=== PATIENT | female | born 1965 | race Caucasian/White ===

== ENCOUNTER 2017-10-07 17:07 | Observation (INO) | payer BC ==
--- NOTE | 2017-10-07 19:06 | RAD ---
INDICATION: Chest pain COMPARISON: None TECHNIQUE: An AP portable view obtained at 1836 hours is submitted. FINDINGS: Bones/Soft Tissues: There are no acute bony findings. Cardiomediastinal: The cardiomediastinal silhouette is normal. Lungs: There are no infiltrates. Pleura: There are no pleural effusions. Other: None IMPRESSION: NO ACTIVE DISEASE.
[2017-10-07 19:07] LABS: Hematocrit 43 % (35-47); Hemoglobin 14.8 g/dl (12.0-16.0); Mean Corpuscular HGB Conc 34 g/dl (31-36); Mean Corpuscular Hemoglobin 31 pg (27-31); Mean Corpuscular Volume 89 fL (80-97); Mean Platelet Volume 8 um3 (7.4-10.4); Red Blood Count 4.83 10^6/ul (4.0-5.4); Red Cell Distribution Width 13 % (10.5-15); White Blood Count 9.1 10^3/ul (3.5-10.8)
[2017-10-07 19:19] LABS: ALT 11 U/L (7-52); AST 11 U/L (13-39); Albumin 4.7 g/dL (3.2-5.2); Alkaline Phosphatase 25 U/L (34-104); Anion Gap 9 mmol/L (2-11); BUN/Creatinine Ratio 14.1 (8-20); Blood Urea Nitrogen 9 mg/dL (6-24); CO2 Carbon Dioxide 23 mmol/L (22-32); Calcium 9.6 mg/dL (8.6-10.3); Chloride 106 mmol/L (101-111); Creatine Kinase 32 U/L (10-223); EGFR African American 125.8 (>60); EGFR Non-African American 97.8 (>60); Globulin 2.8 g/dL (2-4); Glucose 92 mg/dL (70-100); Magnesium 2.4 mg/dL (1.9-2.7); Potassium 3.8 mmol/L (3.5-5.0); Sodium 138 mmol/L (133-145); Total Protein 7.5 g/dL (6.4-8.9)
[2017-10-07 19:53] LABS: T4 8.58 mcg/mL (6.09-12.23)
[2017-10-07 19:57] LABS: TSH (Thyroid Stimulating Horm) 0.49 mcIU/mL (0.34-5.60)
[2017-10-07] MEDS ORDERED: Iohexol 350* (CONTRAST) 500 ML MDV IV ONE (19:57)
[2017-10-07] MEDS ORDERED: NS 0.9% 1000 ML* 1,000 ML IV SCH (20:00)
--- NOTE | 2017-10-07 20:22 | RAD ---
INDICATION: Chest pain. Evaluate for dissection COMPARISON: CTA chest October 18, 2016 TECHNIQUE: Axial source images were obtained from the thoracic inlet to the symphysis pubis following administration of intravenous contrast with CT angiographic technique. Exit cc of Omnipaque 350 was utilized. Coronal and sagittal reconstructed images were acquired. 3-D volume rendered images of the aorta were obtained CHEST FINDINGS: Neck/thyroid: The visualized neck to include the thyroid appears unchanged with enlargement and heterogeneity of the left thyroid lobe. This is been described previously. Chest wall: There are no acute abnormalities of the bony thorax or chest wall. There is no supraclavicular, infraclavicular, or axillary lymphadenopathy. Lungs : There are no pulmonary parenchymal masses or infiltrates. The pulmonary interstitium appears normal. There are no endobronchial lesions. Cardiomediastinal structures: The heart is normal in size. There is no pericardial effusion. There is no evidence of aortic aneurysm or dissection. The pulmonary vessels appear normal. There is no mediastinal or hilar adenopathy. The esophagus appears normal. Pleura : There are no pleural-based masses or effusions. ABDOMINAL/PELVIC FINDINGS: Liver: The liver is normal in size. There are no masses. There is no ductal dilatation. Gallbladder: There are no calcified gallstones. There is no evidence of wall thickening or pericholecystic fluid. Spleen: The spleen is normal in size. There are no masses. Pancreas: There is no evidence of pancreatic mass or ductal dilatation. Adrenal glands: There is no evidence of adrenal mass. Kidneys: The kidneys are normal in size and position. There are prompt nephrograms and there is prompt excretion bilaterally. There are no renal parenchymal masses. There is no evidence of nephrolithiasis. Adenopathy: There is no evidence of adenopathy by size criteria. Fluid collections: There are no free or localized fluid collections. Vessels:The aorta and IVC appear normal. The visceral branches arise satisfactorily. The iliac vessels are normal in caliber. There is no evidence of abdominal aortic or iliac artery aneurysm or dissection GI tract: There are no acute CT bowel findings. There is no obstruction. The stomach and small bowel appear normal. The lower GI tract is normal. The cecum, ileocecal valve, and terminal ileum appear normal. The appendix is visualized and appear normal. Pelvic organs: The uterus and adnexa appear normal Bladder: There are no bladder masses. Abdominal and pelvic soft tissues: The extraperitoneal abdominal and pelvic soft tissues appear normal.. Osseous structures: There are no acute osseous findings. IMPRESSION: NO CT ANGIOGRAPHIC ABNORMALITIES. LUNGS CLEAR.
[2017-10-07 21:40] LABS: Urine Bilirubin Negative (Negative); Urine Glucose Negative (Negative); Urine Nitrite Negative (Negative)
[2017-10-07] MEDS ORDERED: Aspirin TAB* 325 MG PO ONE (21:42)
[2017-10-07] MEDS ORDERED: Nitroglycerin 2% OINT* 1 GM PAK TOPICAL ONE (21:42)
[2017-10-07] MEDS ORDERED: Ondansetron INJ* 2 MG/ML VIAL IV PRN (22:31)
[2017-10-07] MEDS ORDERED: Al Hydrox/Mg Hydrox/Simet LIQ* 30 ML UDC PO PRN (22:31)
[2017-10-07 23:03] LABS: Cholesterol 232 mg/dL; HDL Cholesterol 46.7 mg/dL; LDL Cholesterol 173 mg/dL; Triglycerides 63 mg/dL
--- NOTE | 2017-10-07 23:55 | ED ---
Mk Perez Gabriel, scribed for Pilo Armendariz on 10/07/17 at 1934 . HPI Chest Pain - HPI Summary HPI Summary: This patient is a 52 year old F presenting to [facility] accompanied by with a chief complaint of CP since 3 days ago. The patient rates the pain 5/10 in severity and describes it as pressure and heaviness on her chest. Symptoms alleviated by walking. Patient reports slight SOB and back pain (mid back). Patient denies edema and ABD pain. - History of Current Complaint Chief Complaint: EDChestPainROMI Time Seen by Provider: 10/07/17 19:19 Hx Obtained From: Patient Onset/Duration: Started Days Ago - 3, Still Present Timing: Constant Pain Intensity: 5 Pain Scale Used: 0-10 Numeric Chest Pain Radiates: Yes Chest Pain Radiates To:: Back Character: Other: - pressure and heaviness Alleviating Factor(s): Other: - walking Associated Signs and Symptoms: Positive: Other: - sob and back pain. Negative: Abdominal Pain, Edema - Allergy/Home Medications Allergies/Adverse Reactions: Allergies Allergy/AdvReac Type Severity Reaction Status Date / Time No Known Allergies Allergy Verified 10/07/17 17:38 Home Medications: Home Medications Acetaminophen TAB* [Tylenol TAB*] 650 mg PO DAILY PRN 10/07/17 [History Confirmed 10/07/17] Fluticasone NASAL SPRAY 50MCG* [Flonase NASAL SPRAY 50MCG*] 1 btl NASAL Q6HR [History Confirmed 10/07/17] PMH/Surg Hx/FS Hx/Imm Hx Previously Healthy: No Endocrine/Hematology History: Denies: Hx Diabetes Cardiovascular History: Denies: Hx Hypertension GI History: Reports: Hx Gastroesophageal Reflux Disease History: Denies: Hx Renal Disease - Surgical History Surgery Procedure, Year, and Place: Tubal ligation - Immunization History Date of Tetanus Vaccine: unknown Date of Influenza Vaccine: unknown Infectious Disease History: No Infectious Disease History: Denies: Traveled Outside the [place] in Last 30 Days - Family History Known Family History: Positive: Cardiac Disease, Other - high cholesterol Negative: Hypertension, Diabetes - Social History Alcohol Use: None Hx Substance Use: No Substance Use Type: Reports: None Hx Tobacco Use: No Smoking Status (MU): Never Smoked Tobacco Review of Systems Positive: Chest Pain Positive: Shortness Of Breath Negative: Abdominal Pain Positive: Other - back pain . Negative: Edema All Other Systems Reviewed And Are Negative: Yes Physical Exam - Summary Physical Exam Summary: Appearance: Well appearing, no pain distress Skin: warm, dry, reflects adequate perfusion Head/face: normal Eyes: EOMI, MARLINE ENT: normal Neck: supple, non-tender Respiratory: CTA, breath sounds present Cardiovascular: pulses symmetrical, tachycardia Abdomen: non-tender, soft Bowel: present Musculoskeletal: normal, strength/ROM intact Neuro: normal, sensory motor intact, A&Ox3 Triage Information Reviewed: Yes Vital Signs On Initial Exam: Initial Vitals Temp Pulse Resp BP Pulse Ox 99.5 F 130 20 144/109 100 10/07/17 17:12 10/07/17 17:12 10/07/17 17:12 10/07/17 17:12 10/07/17 17:12 Vital Signs Reviewed: Yes - [place] Coma Scale Coma Scale Total: 15 Diagnostics - Vital Signs Vital Signs Temp Pulse Resp BP Pulse Ox 10/07/17 18:30 121 16 170/101 97 10/07/17 18:00 115 15 172/103 98 10/07/17 17:30 127 20 173/90 99 10/07/17 17:27 132 21 99 10/07/17 17:24 152/120 10/07/17 17:12 99.5 F 130 20 144/109 100 - Laboratory Lab Results: Lab Results 10/07/17 10/07/17 10/07/17 Range/Units 18:52 18:52 18:52 WBC 9.1 (3.5-10.8) 10^3/ul RBC 4.83 (4.0-5.4) 10^6/ul Hgb 14.8 (12.0-16.0) g/dl Hct 43 (35-47) % MCV 89 (80-97) fL MCH 31 (27-31) pg MCHC 34 (31-36) g/dl RDW 13 (10.5-15) % Plt Count 360 (150-450) 10^3/ul MPV 8 (7.4-10.4) um3 Neut % (Auto) 77.1 (38-83) % Lymph % (Auto) 16.8 L (25-47) % Sau[place] % (Auto) 5.3 (1-9) % Eos % (Auto) 0.1 (0-6) % Baso % (Auto) 0.7 (0-2) % Absolute Neuts (auto) 7.0 (1.5-7.7) 10^3/ul Absolute Lymphs (auto) 1.5 (1.0-4.8) 10^3/ul Absolute Monos (auto) 0.5 (0-0.8) 10^3/ul Absolute Eos (auto) 0 (0-0.6) 10^3/ul Absolute Basos (auto) 0.1 (0-0.2) 10^3/ul Absolute Nucleated RBC 0 10^3/ul Nucleated RBC % 0 INR (Anticoag Therapy) 0.97 (0.89-1.11) APTT 33.5 (26.0-36.3) seconds D-Dimer, Quantitative < 200 (Less Than 230) ng/mL Sodium (133-145) mmol/L Potassium (3.5-5.0) mmol/L Chloride (101-111) mmol/L Carbon Dioxide (22-32) mmol/L Anion Gap (2-11) mmol/L BUN (6-24) mg/dL Creatinine (0.51-0.95) mg/dL Est GFR ( Amer) (>60) Est GFR (Non-Af Amer) (>60) BUN/Creatinine Ratio (8-20) Glucose (70-100) mg/dL Lactic Acid (0.5-2.0) mmol/L Calcium (8.6-10.3) mg/dL Magnesium (1.9-2.7) mg/dL Total Bilirubin (0.2-1.0) mg/dL AST (13-39) U/L ALT (7-52) U/L Alkaline Phosphatase (34-104) U/L Total Creatine Kinase (10-223) U/L CK-MB (CK-2) (0.6-6.3) ng/mL Myoglobin (14.3-65.8) ng/mL Troponin I (<0.04) ng/mL B-Natriuretic Peptide 14 ( - 100) pg/mL Total Protein (6.4-8.9) g/dL Albumin (3.2-5.2) g/dL Globulin (2-4) g/dL Albumin/Globulin Ratio (1-3) TSH Thyroxine (T4) 10/07/17 10/07/17 Range/Units 18:52 18:52 WBC (3.5-10.8) 10^3/ul RBC (4.0-5.4) 10^6/ul Hgb (12.0-16.0) g/dl Hct (35-47) % MCV (80-97) fL MCH (27-31) pg MCHC (31-36) g/dl RDW (10.5-15) % Plt Count (150-450) 10^3/ul MPV (7.4-10.4) um3 Neut % (Auto) (38-83) % Lymph % (Auto) (25-47) % Sau[place] % (Auto) (1-9) % Eos % (Auto) (0-6) % Baso % (Auto) (0-2) % Absolute Neuts (auto) (1.5-7.7) 10^3/ul Absolute Lymphs (auto) (1.0-4.8) 10^3/ul Absolute Monos (auto) (0-0.8) 10^3/ul Absolute Eos (auto) (0-0.6) 10^3/ul Absolute Basos (auto) (0-0.2) 10^3/ul Absolute Nucleated RBC 10^3/ul Nucleated RBC % INR (Anticoag Therapy) (0.89-1.11) APTT (26.0-36.3) seconds D-Dimer, Quantitative (Less Than 230) ng/mL Sodium 138 (133-145) mmol/L Potassium 3.8 (3.5-5.0) mmol/L Chloride 106 (101-111) mmol/L Carbon Dioxide 23 (22-32) mmol/L Anion Gap 9 (2-11) mmol/L BUN 9 (6-24) mg/dL Creatinine 0.64 (0.51-0.95) mg/dL Est GFR ( Amer) 125.8 (>60) Est GFR (Non-Af Amer) 97.8 (>60) BUN/Creatinine Ratio 14.1 (8-20) Glucose 92 (70-100) mg/dL Lactic Acid 0.8 (0.5-2.0) mmol/L Calcium 9.6 (8.6-10.3) mg/dL Magnesium 2.4 (1.9-2.7) mg/dL Total Bilirubin 0.70 (0.2-1.0) mg/dL AST 11 L (13-39) U/L ALT 11 (7-52) U/L Alkaline Phosphatase 25 L (34-104) U/L Total Creatine Kinase 32 (10-223) U/L CK-MB (CK-2) 1.2 (0.6-6.3) ng/mL Myoglobin 18.9 (14.3-65.8) ng/mL Troponin I 0.00 (<0.04) ng/mL B-Natriuretic Peptide ( - 100) pg/mL Total Protein 7.5 (6.4-8.9) g/dL Albumin 4.7 (3.2-5.2) g/dL Globulin 2.8 (2-4) g/dL Albumin/Globulin Ratio 1.7 (1-3) TSH Pending Thyroxine (T4) Pending Result Diagrams: 10/07/17 18:52 10/07/17 18:52 Lab Statement: Any lab studies that have been ordered have been reviewed, and results considered in the medical decision making process. - Radiology CXR Radiology Interpretation Completed By: Radiologist - , NO ACTIVE DISEASE. ED physician has reviewed this radiology report and agrees. - CT CT ABD/Pelvis/Chest CT Interpretation Completed By: Radiologist - EKG 17:48 Cardiac Rate: Tachycardia EKG Rhythm: Sinus Tachycardia - 110 BPM EKG Interpretation: No acute changes Re-Evaluation - Re-Evaluation First Eval Re-Evaluation Time: 21:35 Change: Unchanged - Patient still reports chest pain Chest Pain Course/Dx - Course Assessment/Plan: This patient is a 52 year old F presenting to [facility] accompanied by with a chief complaint of CP that radiates into her back since 3 days ago. An EKG reveals sinus tachycardia at [address] Chest/ABD/ Pelvis reveals, per radiologist, NO CT ANGIOGRAPHIC ABNORMALITIES. LUNGS CLEAR. CXR reveals, per radiologist, NO ACTIVE DISEASE. Blood work and urinalysis were taken with no significant abnormalities. In the ED course the patient was given NTG, ASA (325), IV fluids, and Iohexol. pt still have chest pains and will admit. The patient is agreeable with this plan - Chest Pain Differential Diagnosis/HQI/PQRI: Acute TX, ACS, CHF, Chest Wall, Pulmonary Embolism, Other: - dissection aorta - Diagnoses Provider Diagnoses: Ruled out for myocardial infarction, Chest pain - Provider Notifications Discussed Care Of Patient With: Yudelka Bryant Time Discussed With Above Provider: 21:40 Instructed by Provider To: Other - We discussed patient care with Dr. Bryant, hospitalist and they agreed to admit the patient. Discharge - Discharge Plan Condition: Stable Disposition: ADMITTED TO [facility] documentation as recorded by the Mk hankins Gabriel accurately reflects the service I personally performed and the decisions made by Marcello nova Emmanuel.
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
[2017-10-08] MEDS: Heparin VIAL(*) 5000 UNITS/ML VIAL (FIVE THOUSAND) SUBCUT SCH ×2 (05:56→15:31)
[2017-10-08] MEDS ORDERED: Fluticasone NASAL SPRAY 50MCG* 16 gm SPRAY BTL BOTH NARES SCH (09:00)
[2017-10-08] MEDS ORDERED: Aspirin EC Low Dose* 81 MG TAB.EC PO SCH (09:00)
--- NOTE | 2017-10-08 15:23 | PN ---
Subjective Date of Service: 10/08/17 Interval History: Patient seen and examined at bedside. Denies fever, chills, shortness of breath , chest discomfort, N/V/D. Pt reports recently carrying heavy groceries and feels this could have contributed to her discomfort. Pt also reports recently switching from decaf to regular coffee and has had palpitations with regular coffee in the past. Tele: Sinus rhythm, rate 70-80's, few PVCs noted Family History: Unchanged from Admission Social History: Unchanged from Admission Past Medical History: Unchanged from Admission Objective Active Medications: Al Hydrox/Mg Hydrox/Simethicone (Maalox Plus*) 30 ml PO Q6H PRN Reason: INDIGESTION Aspirin (Aspirin Ec Low Dose*) 81 mg PO DAILY DERREK Fluticasone Propionate (Flonase Nasal [place] 50mcg*) 2 spray BOTH NARES DAILY DERREK Heparin Sodium (Porcine) (Heparin Vial(*)) 5,000 units SUBCUT Q8HR DERREK Ondansetron HCl (Zofran Inj*) 4 mg IV Q4H PRN Reason: NAUSEA/VOMITING Vital Signs 10/07/17 10/07/17 10/08/17 23:00 23:46 00:00 Temperature Pulse Rate 91 88 85 Respiratory 18 17 15 Rate Blood Pressure 139/90 134/85 (mmHg) O2 Sat by Pulse 97 96 96 Oximetry 10/08/17 10/08/17 10/08/17 00:01 00:10 03:31 Temperature 98.7 F 98.0 F 98.2 F Pulse Rate 84 78 Respiratory 18 20 Rate Blood Pressure 142/74 138/79 (mmHg) O2 Sat by Pulse 99 98 Oximetry Oxygen Devices in Use Now: None Appearance: NAD, laying in bed Respiratory: Symmetrical Chest Expansion and Respiratory Effort, Clear to Auscultation Cardiovascular: NL Sounds; No Murmurs; No JVD, RRR Abdominal: NL Sounds; No Tenderness; No Distention Extremities: No Edema Skin: No Rash or Ulcers Neurological: Alert and Oriented x 3, NL Muscle Strength and Tone Lines/Tubes/Other Access: Clean, Dry and Intact Peripheral IV - site benign Nutrition: Taking PO's Result Diagrams: 10/07/17 18:52 10/07/17 18:52 Additional Lab and Data: Assess/Plan/Problems-Billing Assessment: Ms. Frank is a 52 yo female with no significant PMH who presented to the emergency room with complaints of palpitations and chest discomfort. - Patient Problems (1) Chest pain Code(s): R07.9 - CHEST PAIN, UNSPECIFIED SNOMED Code(s): 17292766 Comment: - Suspect noncardiac, muscular and/or anxiety - with palpitations - Troponin - 0.00, 0.01, 0.01 - Lipids - borderline (were not fasting) will need outpt follow-up - Exercise stress test - Negative maximal stress test with reduced exercise tolerance (2) Seasonal allergies Code(s): J30.2 - OTHER SEASONAL ALLERGIC RHINITIS SNOMED Code(s): 152438528 Comment: - Continue Flonase (3) DVT prophylaxis Code(s): VQR0167 - SNOMED Code(s): 889843468 (4) Full code status Code(s): Z78.9 - OTHER SPECIFIED HEALTH STATUS SNOMED Code(s): 061870896 Status and Disposition: OBV. Stable for discharge to home.
[2017-10-08 16:04] VITALS: BP 135/78
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
== END 2017-10-08 16:00 | disposition home or self-care (01) ==
LOC: ED 17:07 → MEDTELE 22:31
PROVIDERS: ADMIT Pediatrics; ATTEND Internal Medicine
DX: R07.89 Other chest pain (principal); R00.2 Palpitations
CPT/HCPCS: 36415; 71010; 71275; 74174; 80053; 80061; 81003; 82550; 82553; 83605; 83735; 83874; 83880; 84436; 84443; 84484; 84702; 85025; 85379; 85610; 85730; 93005; 99284; A9270-GY; G0378; J1644; Q9967